=== PATIENT | female | born 1990 | race Caucasian/White ===

== ENCOUNTER 2024-10-28 09:34 | Emergency (ER) | payer SELFPAY ==
[2024-10-28 10:10] LABS: Absolute Eosinophils 0.1 K/uL (0-0.5); Absolute Lymphocytes (CBC) 1.3 K/uL (0.7-4.9); Absolute Monocytes 0.4 K/uL (0.1-1.3); Absolute Neutrophil 5.3 K/uL (1.8-8.0); Basophils % 0.5 % (0-1.3); Eosinophils % 1.6 % (0-4.4); Hematocrit 39.5 % (36.0-45.0); Hemoglobin 13.2 g/dL (12.0-15.0); MCHC 33.3 g/dL (32.0-36.0); MCV 84.1 fL (80-100); MPV 7.6 fL (7.6-11.3); Monocytes % 6.1 % (3.3-12.3); Neutrophils % 73.8 % (41.7-73.7); Platelets 294 thou/uL (152-406); RBC Red Blood Cell Count 4.69 M/uL (3.86-4.86); Red Cell Distribution Width 12.7 % (12.1-15.2)
[2024-10-28] MEDS ORDERED: KETOROLAC 30 MG/ML INJ ONE (10:19)
[2024-10-28 10:24] LABS: Anion Gap 9.7 mEq/L (5.0-15.0); Potassium 3.7 mEq/L (3.5-5.1)
--- NOTE | 2024-10-28 10:53 | RAD REPORT ---
Transvaginal Study Probe CLINICAL INDICATION: Female 34 years old irregular vaginal bleeding TECHNIQUE: Real-time ultrasonography of the pelvis was performed transvaginally. Color and spectral D oppler evaluation of the ovaries was performed. [id number]. COMPARISON: No prior exam. FINDINGS: UTERUS AND CERVIX: The uterus measures 7.1 x 4 x 5.2 cm (cervix to fundus x AP x transverse). The [place] caryl is normal. No masses seen. IUD present which appears to be in satisfactory position at the uterine fundus but which obscures the endometrial stripe. Small nabothian cysts. RIGHT OVARY: Normal The right ovary measures 2.5 x 1.5 x 2.3 cm with volume 4.5 cc . Normal color and spectral Doppler evaluation of the right ovary.. LEFT OVARY: Complex left ovarian cyst containing internal debris without vascular flow which measur es 2.2 x 1.6 cm.. The left ovary measures 4.4 x 2.4 x 2.5 cm with volume of 13.7 cc . Normal Color and spectral Doppler evaluation of the left ovary.. FREE FLUID: No free fluid. IMPRESSION: 1. Complex cyst in left ovary probably a hemorrhagic cyst. Recommend 8-12 week follow-up pelvic ultra sound to reassess and ensure resolution. 2. Both ovaries have vascular flow. 3. IUD at the uterine fundus.
--- NOTE | 2024-10-28 12:20 | ER ---
Nurse's Notes [facility] Name: Veronica Logan Age: 34 yrs Sex: Female : 1990 Arrival Date: 10/28/2024 Time: 09:34 Bed 8 Private MD: Diagnosis: Other ovarian cysts;Abnormal uterine and vaginal bleeding, unspecified Presentation: 10/28 09:48 Chief complaint: Patient states: Heavy vaginal bleeding for 10 days, painful cramping ll1 for 3 days. No fever. Coronavirus screen: Client denies travel out of the [place] in the last 14 days. At this time, the client does not indicate any symptoms associated with coronavirus-19. Ebola Screen: Patient denies travel to an Ebola-affected area in the 21 days before illness onset. Initial Sepsis Screen: Does the patient meet any 2 criteria? No. Patient's initial sepsis screen is negative. Does the patient have a suspected source of infection? No. Patient's initial sepsis screen is negative. Risk Assessment: Do you want to hurt yourself or someone else? Patient reports no desire to harm self or others. Onset of symptoms was October 18, 2024. 09:48 Method Of Arrival: Ambulatory ll1 09:48 Acuity: LATESHA 3 ll1 Triage Assessment: 09:51 General: Appears distressed, uncomfortable, Behavior is calm, cooperative, appropriate ll1 for age, Reports chills for. Neuro: No deficits noted. : Reports cramping, vaginal bleeding that is heavy flow. 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 - Infectious Disease History:: Denies. - Social history:: Smoking status: Patient denies any tobacco usage or history of. Screenin:50 [facility] ED Fall Risk Assessment (Adult) History of falling in the last 3 months, bp including since admission No falls in past 3 months (0 pts) Confusion or Disorientation No (0 pts) Intoxicated or Sedated No (0 pts) Impaired Gait No (0 pts) Mobility Assist Device Used No (0 pt) Altered Elimination No (0 pt) Score/Fall Risk Level 0 - 2 = Low Risk. Abuse screen: Denies threats or abuse. Denies injuries from another. Nutritional screening: No deficits noted. Tuberculosis screening: No symptoms or risk factors identified. Assessment: 09:50 General: Appears in no apparent distress. Behavior is appropriate for age. Pain: bp Complains of pain in pelvis. : Reports vaginal bleeding that is moderate flow. 11:05 Reassessment: Patient and/or family updated on plan of care and expected duration. Pain ap3 level reassessed. Patient is alert, oriented x 3, equal unlabored respirations, skin warm/dry/pink. Vital Signs: 09:48 BP 115 / 83; Pulse 95; Resp 17; Temp 97.5; Pulse Ox 100% on R/A; Weight 52.16 kg; ll1 Height 5 ft. 0 in. ; Pain 8/10; 12:17 Pulse 91; Resp 17; Pulse Ox 100% ; ap3 09:48 Body Mass Index 22.46 (52.16 kg, 152.4 cm) ll1 09:48 Pain Scale: Adult ll1 ED Course: 09:39 Patient arrived in ED. ra3 09:40 Grayson Bernal MD is Attending Physician. ec2 09:41 Sudhir Villanueva, WAYNE is Primary Nurse. bp 09:48 Arm band placed on Patient placed in an exam room, on a stretcher. ll1 09:50 Patient has correct armband on for positive identification. bp 09:51 Triage completed. ll1 10:00 Inserted saline lock: 20 gauge in right antecubital area, using aseptic technique. ap3 Blood collected. Flushed with 10 mL NS. 10:26 Transvaginal Study Probe In Process Unspecified. EDMS 11:05 Provided Education on: medications prior to administration . Warm blanket given. ap3 11:36 Test, Serum Sent. ap3 12:33 No provider procedures requiring assistance completed. IV discontinued, intact, ap3 bleeding controlled, No redness/swelling at site. Pressure dressing applied. Administered Medications: 11:03 Drug: Ketorolac IVP 15 mg IVP once Route: IVP; Site: right antecubital; ap3 11:32 Follow up: Response: No adverse reaction ap3 Medication: 11:05 VIS not applicable for this client. ap3 Outcome: 12:20 Discharge ordered by . ec2 12:34 Discharged to home ambulatory, ap3 12:34 Condition: good 12:34 Discharge instructions given to patient, Instructed on discharge instructions, follow up and referral plans. medication usage, Demonstrated understanding of instructions, follow-up care, medications, Prescriptions given X 1, 12:34 Patient left the ED. ap3 Signatures: Dispatcher [employer] EDSudhir Barrios RN RN Mercy Pride RN RN ap3 Katherin Ortiz RN RN ll1 Grayson Bernal MD MD ec2 Trupti Bill 3
--- NOTE | 2024-10-28 12:20 | EDPHYS ---
Physician Documentation [facility] Name: Veronica Logan Age: 34 yrs Sex: Female : 1990 Arrival Date: 10/28/2024 Time: 09:34 Bed 8 Private MD: ED Physician Grayson Bernal HPI: 10/28 09:51 This 34 yrs old Female presents to ER via Unassigned with complaints of Heavy ec2 vaginal bleeding with cramping. 09:51 Patient arrives today for evaluation of 10 days of vaginal bleeding and abdominal ec2 cramping. Patient reports that she has been experiencing a prolonged period states her LMP was approximately 3 weeks ago and now has been having reports negative at-home testing. Patient reports that she otherwise has a Mirena IUD that was placed approximately 5 years ago. Additional bleeding for the past 10 days.. 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 - Infectious Disease History:: Denies. - Social history:: Smoking status: Patient denies any tobacco usage or history of. ROS: 09:51 Constitutional: as per hpi ec2 Exam: 09:51 Constitutional: GEN: NAD Head: atraumatic Eyes: EOMI Ears: External ears are ec2 normal. CV: regular rate LUNGS: no respiratory distress ABD: non-distended SKIN: no evidence of rashes MSK: no evidence of trauma Vital Signs: 09:48 BP 115 / 83; Pulse 95; Resp 17; Temp 97.5; Pulse Ox 100% on R/A; Weight 52.16 kg; ll1 Height 5 ft. 0 in. ; Pain 8/10; 12:17 Pulse 91; Resp 17; Pulse Ox 100% ; ap3 09:48 Body Mass Index 22.46 (52.16 kg, 152.4 cm) ll1 09:48 Pain Scale: Adult ll1 MDM: 09:40 Medical Screening Exam initiated ec2 09:51 Data reviewed: vital signs, nurses notes. ED course: Patient arrives today for vaginal ec2 bleeding. Examination is revealing for well-appearing nontoxic and appears otherwise in no acute distress. Will obtain lab work, type and screen, ultrasound. Differential includes anemia, AUB, .. 10/28 09:47 Order name: CBC with Diff; Complete Time: 10:47 ec2 10/28 09:47 Order name: BMP; Complete Time: 10:47 ec2 10/28 09:47 Order name: Type And Screen; Complete Time: 10:47 ec2 10/28 11:27 Order name: Test, Serum; Complete Time: 12:17 ec2 10/28 10:01 Order name: Transvaginal Study Probe; Complete Time: 10:54 EDMS 10/28 11:29 Order name: Misc. Order: please send red top for hcg serum; Complete Time: 11:36 ec2 Administered Medications: 11:03 Drug: Ketorolac IVP 15 mg IVP once Route: IVP; Site: right antecubital; ap3 11:32 Follow up: Response: No adverse reaction ap3 Disposition Summary: 10/28/24 12:20 Discharge Ordered Notes: Location: Home ec2 Condition: Stable ec2 Diagnosis - Other ovarian cysts ec2 - Abnormal uterine and vaginal bleeding, unspecified ec2 Followup: ec2 - With: Private Physician - When: - Reason: Re-evaluation by your physician Discharge Instructions: - Discharge Summary Sheet ec2 - Dysfunctional Uterine Bleeding ec2 Forms: - Medication Reconciliation Form ec2 - Antibiotic Education ec2 - Prescription Opioid Use ec2 - Patient Portal Instructions ec2 - Leadership Thank You Letter ec2 Prescriptions: - acetaminophen-codeine 300-30 mg Oral tablet - take 1 tablet ORAL route every 4 hours as needed for pain; 15 tablet; Refills: ec2 0, Product Selection Permitted Signatures: Dispatcher [employer] Mercy Cartwright RN RN ap3 Katherin Ortiz RN RN ll1 Grayson Bernal MD MD ec2 Corrections: (The following items were deleted from the chart) 10:01 09:53 Pelvis Complete+US.RAD.BRZ ordered. EDMS EDMS
[2024-10-28 12:43] VITALS: BP 115/83; TEMP 97.5; O2SAT 100
== END 2024-10-28 12:34 | disposition home or self-care (01) ==
LOC: ER 09:34
DX: N83.299 Other ovarian cyst, unspecified side (principal)
CPT/HCPCS: 36415; 76830; 80048; 84703; 85025; 86850; 86900; 86901; 96374; 99284

== ENCOUNTER 2024-11-05 08:48 | Emergency (ER) | payer SELFPAY ==
--- OUTSIDE RECORDS SUMMARY | 2024-11-05 08:52 | XMS REPORT | Continuity of Care Document ---
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 [id number] [place] Program
[2024-11-05] MEDS ORDERED: KETOROLAC 30 MG/ML INJ ONE (09:21)
[2024-11-05] MEDS ORDERED: ONDANSETRON 4 MG/2 ML VIAL ONE (09:21)
[2024-11-05] MEDS ORDERED: MORPHINE 4 MG/ML SYR ONE (09:22)
[2024-11-05 09:39] LABS: Absolute Basophils 0.1 K/uL (0-0.5); Absolute Lymphocytes (CBC) 1.2 K/uL (0.7-4.9); Absolute Monocytes 0.6 K/uL (0.1-1.3); Absolute Neutrophil 6.3 K/uL (1.8-8.0); Basophils % 0.7 % (0-1.3); Eosinophils % 0.5 % (0-4.4); Hematocrit 37.3 % (36.0-45.0); Hemoglobin 12.2 g/dL (12.0-15.0); Lymphocytes % 14.6 % (15.3-44.8); MCH 27.4 pg (27.0-35.0); MCHC 32.6 g/dL (32.0-36.0); MCV 84.1 fL (80-100); MPV 7.1 fL (7.6-11.3); Monocytes % 7.1 % (3.3-12.3); Neutrophils % 77.1 % (41.7-73.7); Nucleated Red Blood Cells % 0.1 % (0-0); Platelets 451 thou/uL (152-406); RBC Red Blood Cell Count 4.44 M/uL (3.86-4.86); Red Cell Distribution Width 12.4 % (12.1-15.2)
[2024-11-05 09:46] LABS: Specific Gravity 1.025 (1.005-1.030)
[2024-11-05 09:54] LABS: Specific Gravity 1.025 (1.005-1.030); Sqamous Epithelial <5 /HPF (None Seen); Urine Bacteria 20-50 /HPF (<20); Urine Bilirubin NEGATIVE (Negative); Urine Blood Negative (Negative); Urine Clarity Extremely Turbid (Clear); Urine Color Yellow (Yellow); Urine Culture Reflex Order REFLEXED; Urine Glucose NEGATIVE (Negative); Urine Ketones 1+ (Negative); Urine Microscopic Reflex YN ORDER UMIC; Urine Mucus 4+ /HPF (None Seen); Urine Nitrite NEGATIVE (Negative); Urine Protein TRACE (Negative); Urine Urobilinogen 2+ (Normal)
[2024-11-05 09:55] LABS: Albumin 3.4 g/dL (3.4-5.0); Albumin/Globulin Ratio 0.7 (1.1-1.8); Anion Gap 5.9 mEq/L (5.0-15.0); Bilirubin Total 0.6 mg/dL (0.2-1.0); Globulin 4.7 g/dL (2.3-3.5); Potassium 3.9 mEq/L (3.5-5.1); Protein, Total 8.1 g/dL (6.4-8.2)
--- NOTE | 2024-11-05 10:29 | RAD REPORT ---
EXAMINATION: CT ABDOMEN AND PELVIS WITH CONTRAST CLINICAL INDICATION: r side abd pain, flank pain TECHNIQUE: CT abdomen and pelvis was performed, after the administration of IV contrast, [facility]. Axial, sagittal and coronal reconstructions were obtained. One or more of the following dose reduction techniques were used: Automated exposure control, adjustment of the mA and k V according to patient size, and iterative reconstruction. Unless otherwise specified, incidental findings do not require dedicated imaging follow-up. COMPARISON: 10/28/2024 ultrasound FINDINGS: LOWER CHEST: The visualized lung bases are clear. LIVER: Normal in size and contour. No focal lesion. Grossly unremarkable gallbladder. SPLEEN: Normal size. No focal lesion. PANCREAS: No mass, ductal dilation, or emmie-pancreatic fluid. ADRENALS: Normal; no mass. KIDNEYS: Normal size and contour. No hydronephrosis. GASTROINTESTINAL TRACT: No evidence of free air, significant intra-abdominal free fluid, bowel obstru ction or abscess. APPENDIX: Normal appendix. LYMPH NODES: No lymphadenopathy. MUSCULOSKELETAL: No acute or suspicious osseous abnormality. ADDITIONAL FINDINGS: IUD is in the uterus. IMPRESSION: No acute or concerning abnormalities seen in the abdomen or pelvis.
--- NOTE | 2024-11-05 10:48 | ER ---
Nurse's Notes [facility] Name: Veronica Logan Age: 34 yrs Sex: Female : 1990 Arrival Date: 11/05/2024 Time: 08:48 Bed 20 Private MD: Diagnosis: Upper abdominal pain, unspecified Presentation: 11/05 09:07 Chief complaint: Worsening RUQ pain x 1 week. Coronavirus screen: At this time, the hb client does not indicate any symptoms associated with coronavirus-19. Ebola Screen: No symptoms or risks identified at this time. Initial Sepsis Screen: Does the patient meet any 2 criteria? No. Patient's initial sepsis screen is negative. Does the patient have a suspected source of infection? No. Patient's initial sepsis screen is negative. Risk Assessment: Do you want to hurt yourself or someone else? Patient reports no desire to harm self or others. Onset of symptoms was October 28, 2024. 09:07 Method Of Arrival: Ambulatory 09:07 Acuity: LATESHA 3 Triage Assessment: 09:10 General: Appears uncomfortable, Behavior is cooperative, appropriate for age, anxious. bp Pain: Complains of pain in right upper quadrant. EENT: No deficits noted. Neuro: No deficits noted. Cardiovascular: No deficits noted. Respiratory: No deficits noted. GI: Reports upper abdominal pain. : No signs and/or symptoms were reported regarding the genitourinary system. Derm: No deficits noted. Musculoskeletal: No deficits noted. Historical: - Allergies: 09:08 No Known Allergies; hb - Home Meds: 09:08 None [Active]; hb - PMHx: 09:08 None; hb - PSHx: 09:08 section; hb - Immunization history:: Adult Immunizations up to date. - Infectious Disease History:: Denies. - Social history:: Smoking status: Patient denies any tobacco usage or history of. Screenin:10 [facility] ED Fall Risk Assessment (Adult) History of falling in the last 3 months, bp including since admission No falls in past 3 months (0 pts) Confusion or Disorientation No (0 pts) Intoxicated or Sedated No (0 pts) Impaired Gait No (0 pts) Mobility Assist Device Used No (0 pt) Altered Elimination No (0 pt) Score/Fall Risk Level 0 - 2 = Low Risk Oriented to surroundings. Abuse screen: Denies threats or abuse. Denies injuries from another. Nutritional screening: No deficits noted. Tuberculosis screening: No symptoms or risk factors identified. Assessment: 09:10 General: Appears in no apparent distress. uncomfortable, Behavior is cooperative, bp appropriate for age, anxious. Vital Signs: 09:07 BP 134 / 103; Pulse 89; Resp 18; Temp 98.3(O); Pulse Ox 100% on R/A; Weight 48.53 kg; hb Height 5 ft. 0 in. ; Pain 10/10; 11:06 BP 96 / 66; Pulse 86; Resp 15; Temp 98; Pulse Ox 97% ; bp 09:07 Body Mass Index 20.90 (48.53 kg, 152.4 cm) hb 09:07 Pain Scale: Adult hb ED Course: 08:51 Patient arrived in ED. ra3 09:04 Sudhir Villanueva, WAYNE is Primary Nurse. bp 09:05 Grayson Bernal MD is Attending Physician. ec2 09:08 Triage completed. hb 09:09 Arm band placed on. hb 09:10 Patient has correct armband on for positive identification. bp 09:32 Initial lab(s) drawn, by me, sent to lab. Urine collected: clean catch specimen, steve bp colored. Inserted saline lock: 22 gauge in right forearm, using aseptic technique. Blood collected. Flushed with 10 mL NS. 10:15 CT Abd/Pelvis - IV Contrast Only In Process Unspecified. EDMS 10:48 Vahid Correa MD is Referral Physician. ec2 11:06 No provider procedures requiring assistance completed. IV discontinued, intact, bp bleeding controlled, No redness/swelling at site. Pressure dressing applied. Administered Medications: 09:32 Drug: TORadol - Ketorolac IVP 15 mg IVP once Route: IVP; Site: right forearm; bp 11:07 Follow up: Response: No adverse reaction bp 09:32 Drug: Ondansetron IVP 4 mg IVP once; over 2 minutes Route: IVP; Site: right forearm; bp 11:07 Follow up: Response: No adverse reaction bp 09:32 Drug: morphine IVP or IV 4 mg IVP once over 4 mins Route: IVP; Infused Over: 4 mins; bp Site: right forearm; 11:07 Follow up: Response: No adverse reaction bp Medication: 09:10 VIS not applicable for this client. bp Outcome: 10:47 Discharge ordered by . [email or web address] 11:06 Discharged to home ambulatory, bp 11:06 Condition: stable 11:06 Discharge instructions given to patient, Instructed on discharge instructions, follow up and referral plans. medication usage, Demonstrated understanding of instructions, follow-up care, medications, Prescriptions given X 2, 11:07 Patient left the ED. bp Signatures: Dispatcher [employer] EDDalila Queen RN RN Sudhir Grissom RN RN Grayson Espinoza MD MD ec2 Trupti Bill ra3
--- NOTE | 2024-11-05 10:48 | EDPHYS ---
Physician Documentation [facility] Name: Veronica Logan Age: 34 yrs Sex: Female : 1990 Arrival Date: 11/05/2024 Time: 08:48 Bed 20 Private MD: ED Physician Grayson Bernal HPI: 11/05 09:12 This 34 yrs old Female presents to ER via Ambulatory with complaints of ec2 Abdominal Pain. 09:12 Patient arrives today for evaluation of right-sided abdominal pain. Patient reports ec2 that she has been experiencing intermittent right-sided abdominal pain that is worsened over the past week. States that she was seen here about a week ago for pain in the left lower quadrant and this is different today. External records show that she had an ultrasound and had a left-sided hemorrhagic cyst. Reports no previous abdominal surgery aside from .. Historical: - Allergies: 09:08 No Known Allergies; hb - Home Meds: 09:08 None [Active]; hb - PMHx: 09:08 None; hb - PSHx: 09:08 section; hb - Immunization history:: Adult Immunizations up to date. - Infectious Disease History:: Denies. - Social history:: Smoking status: Patient denies any tobacco usage or history of. ROS: 09:12 Constitutional: as per hpi ec2 Exam: 09:12 Constitutional: GEN: NAD Head: atraumatic Eyes: EOMI Ears: External ears are ec2 normal. CV: regular rate LUNGS: no respiratory distress ABD: non-distended, soft, tender in the right upper quadrant, not guarding, not rigid, right CVA TTP SKIN: no evidence of rashes MSK: no evidence of trauma Vital Signs: 09:07 BP 134 / 103; Pulse 89; Resp 18; Temp 98.3(O); Pulse Ox 100% on R/A; Weight 48.53 kg; hb Height 5 ft. 0 in. ; Pain 10/10; 11:06 BP 96 / 66; Pulse 86; Resp 15; Temp 98; Pulse Ox 97% ; bp 09:07 Body Mass Index 20.90 (48.53 kg, 152.4 cm) hb 09:07 Pain Scale: Adult hb MDM: 09:06 Medical Screening Exam initiated ec2 09:12 Data reviewed: vital signs, nurses notes. ED course: Patient arrives today for ec2 evaluation of right-sided abdominal pain. Examination revealing for abdominal findings as above. Will obtain lab work, urine studies and treat the patient's pain with morphine, Zofran as well as Toradol. Differential diagnosis include processes such as appendicitis, cholecystitis, urolithiasis. 10:47 ED course: CT imaging shows no acute intra-abdominal or pelvic process. On reassessment ec2 patient is well-appearing no acute distress. Will discharge home have her follow-up with GI. Doubt other process such as ovarian torsion given location of symptoms. Additionally doubt PID. . 11/05 09:12 Order name: CBC with Diff; Complete Time: 09:50 ec2 11/05 09:12 Order name: CMP; Complete Time: 10:03 ec2 11/05 09:12 Order name: Lipase; Complete Time: 10:03 ec2 11/05 09:12 Order name: Test, Urine; Complete Time: 09:50 ec2 11/05 09:12 Order name: Urinalysis w/ reflexes; Complete Time: 10:03 ec2 11/05 09:58 Order name: Urine Culture EDMS 11/05 09:12 Order name: CT Abd/Pelvis - IV Contrast Only; Complete Time: 10:43 ec2 11/05 09:12 Order name: IV Saline Lock; Complete Time: 09:32 ec2 11/05 09:12 Order name: Labs collected and sent; Complete Time: 09:32 ec2 Administered Medications: 09:32 Drug: TORadol - Ketorolac IVP 15 mg IVP once Route: IVP; Site: right forearm; bp 11:07 Follow up: Response: No adverse reaction bp 09:32 Drug: Ondansetron IVP 4 mg IVP once; over 2 minutes Route: IVP; Site: right forearm; bp 11:07 Follow up: Response: No adverse reaction bp 09:32 Drug: morphine IVP or IV 4 mg IVP once over 4 mins Route: IVP; Infused Over: 4 mins; bp Site: right forearm; 11:07 Follow up: Response: No adverse reaction bp Disposition Summary: 11/05/24 10:47 Discharge Ordered Notes: Location: Home ec2 Condition: Stable ec2 Diagnosis - Upper abdominal pain, unspecified ec2 Followup: ec2 - With: Private Physician - When: - Reason: Re-evaluation by your physician Followup: ec2 - With: Vahid Correa MD - When: - Reason: Recheck today's complaints Discharge Instructions: - Discharge Summary Sheet ec2 - Abdominal Pain, Adult ec2 Forms: - Work release form ec2 - Medication Reconciliation Form ec2 - Antibiotic Education ec2 - Prescription Opioid Use ec2 - Patient Portal Instructions ec2 - Leadership Thank You Letter ec2 Prescriptions: - Zofran 4 mg Oral Tablet - take 1 tablet ORAL route every 12 hours As needed; 20 tablet; Refills: 0, ec2 Product Selection Permitted - Pepcid 20 mg Oral Tablet - take 1 tablet ORAL route once daily; 20 tablet; Refills: 0, Product Selection ec2 Permitted Signatures: Dispatcher [employer] EDDalila Queen, RN RN hb Sudhir Villanueva, RN RN bp Grayson Bernal MD MD ec2 Corrections: (The following items were deleted from the chart) 09:12 09:12 CBC+H.LAB.BRZ ordered. EDMS EDMS 09:12 09:12 COMPREHENSIVE METABOLIC PANEL+C.LAB.BRZ ordered. EDMS EDMS 09:12 09:12 LIPASE+C.LAB.BRZ ordered. EDMS EDMS 09:12 09:12 Test, Urine+UC.LAB.BRZ ordered. EDMS EDMS 09:12 09:12 Urinalysis+U.LAB.BRZ ordered. EDMS EDMS 09:12 09:12 Abdomen Pelvis W Con+CT.RAD.BRZ ordered. EDMS EDMS
[2024-11-05 11:37] VITALS: BP 96/66; TEMP 98; O2SAT 97
== END 2024-11-05 11:07 | disposition home or self-care (01) ==
LOC: ER 08:48
DX: R10.10 Upper abdominal pain, unspecified (principal)
CPT/HCPCS: 36415; 74177; 80053; 81001; 81025; 83690; 85025; 87086; 87088; 96374; 96375; 99284; J2405; Q9967